=== PATIENT | male | born 1955 | race Two or more races ===

== ENCOUNTER 2017-07-26 11:42 | Day surgery (SDC) | payer OTHER ==
[2017-07-22 13:43] VITALS: BMI 31.6
[~2017-07-26 11:42] MED LIST: LACTATED RINGERS 1,000 ML IV SCH
[2017-07-26 13:17] VITALS: RESP 16; TEMP 98.9
[2017-07-26] MEDS ORDERED: LIDOCAINE 1% 20 ML VIAL (10MG/ML) FOR IV START INTRADERMA ONE (13:17)
--- NOTE | 2017-07-26 14:51 | P.PCN ---
Date of Procedure: 07/26/17 Procedure(s) Performed: Procedure: Colonoscopy and polypectomy. Preoperative diagnosis: Screening for neoplasia. Postoperative diagnosis: 1. Sigmoid polyp snared but no large polyps or cancer. 2. Sigmoid diverticulosis with no evidence of acute diverticulitis or strictures. Preparation: HalfLytely prep. Sedation: Was provided by anesthesia. Brief clinical history: The patient is a 63-year-old male who is referred for this evaluation for screening for neoplasia. He had a prior exam more than 15 years ago. At this time, he has no abdominal complaints, bleeding or anemia. Procedure: With the patient on his left lateral decubitus position and after informed consent and adequate sedation, the perianal area was inspected and it did not show any fissures or fistulas. There were no masses felt on digital rectal examination. The Olympus CFQ 160L video colonoscope was then inserted in the rectum in the usual fashion and advanced to the cecum. There were multiple diverticular orifices seen scattered in the sigmoid but there was no evidence of acute diverticulitis or strictures. There was a 1-1.5 cm polyp noted in the distal sigmoid which was snared and retrieved by suction, but there were no large polyps or cancer. The patient tolerated the procedure well. Plan: The patient was reassured. Discussed dietary measures. He will follow up with you as planned and I anticipate repeating this exam in 5 years.
[2017-07-26 15:06] VITALS: BP 156/82; PULSE 69
== END 2017-07-26 15:16 | disposition home or self-care (01) ==
LOC: ORWHC2ENDO 11:42
DX: Z12.11 Encounter for screening for malignant neoplasm of colon (principal); D12.5 Benign neoplasm of sigmoid colon; K57.30 Diverticulosis of large intestine without perforation or abscess without bleeding; F17.200 Nicotine dependence, unspecified, uncomplicated
CPT/HCPCS: 45385; 88305

== ENCOUNTER → 2023-04-22 | Outpatient (CLI) | payer MEDICARE ==
[2023-04-22 16:27] LABS: Appearance,Urine Clear (Clear); Bilirubin,Urine Negative (Negative); Blood,Urine Negative (Negative); Color,Urine Yellow (Yellow); Ketones,Urine Negative (Negative); Nitrite,Urine Negative (Negative); Specific Gravity,Urine 1.022 (1.001-1.030)
[2023-04-22 16:48] LABS: BUN/Creat Ratio 13.31 Ratio (12.00-20.00); Blood Urea Nitrogen 17.3 mg/dL (9.0-27.0); Calcium 9.7 mg/dL (8.7-10.3); Carbon Dioxide 25.5 mmol/L (21.6-31.8); Chloride 104 mmol/L (96-109); Glucose 103 mg/dL (70-110); Sodium 140 mmol/L (135-145)
[2023-04-23 04:34] LABS: Basophils # (A) 0.07 X 10*3/uL (0.00-0.10); Basophils % (A) 0.9 %; Eosinophils # (A) 0.18 X 10*3/uL (0.04-0.35); Eosinophils % (A) 2.2 %; HGB 16.8 d/dL (13.0-17.0); Lymphocytes # (A) 1.78 X 10*3/uL (0.90-5.00); MCH 31.5 pg (27.0-32.0); MCHC 32.9 d/dL (32.0-37.0); MCV 95.5 FL (80.0-97.0); Mean Platelet Volume 12.5 FL (9.5-12.2); Monocytes # (A) 0.79 X 10*3/uL (0.20-1.00); Monocytes % (A) 9.8 %; NRBC Per 100 WBC 0 X 10*3/uL (0.00-0.01); Neutrophils # (A) 5.23 X 10*3/uL (1.80-7.70); Neutrophils % (A) 64.6 %; Platelet Count 178 X 10*3/uL (140-440); RBC 5.34 X 10*6/uL (4.40-5.60); RDW 12.7 % (11.5-14.5); WBC 8.09 X 10*3/uL (4.50-10.00)
== END | disposition home or self-care (01) ==
LOC: LABWHC1 12:03
PROVIDERS: ATTEND Urology
DX: Z01.818 Encounter for other preprocedural examination (principal); C61 Malignant neoplasm of prostate; I44.4 Left anterior fascicular block; R31.29 Other microscopic hematuria; R94.31 Abnormal electrocardiogram [ECG] [EKG]
CPT/HCPCS: 36415; 80048; 81003; 85025; 87086; 93005

== ENCOUNTER 2023-04-29 05:41 | Day surgery (SDC) | payer MEDICARE ==
[2023-04-21 09:51] VITALS: BMI 31.6
[2023-04-29] MEDS ORDERED: ONDANSETRON 4 MG/2 ML VIAL ONE (06:27)
[2023-04-29] MEDS ORDERED: fentaNYL (PF) 50 MCG/ML 2 ML AMP ONE (07:36)
[2023-04-29] MEDS ORDERED: PHENYLEPHRINE-0.9% NACL SYG 1,000 MCG/10 ML SYRINGE ONE (07:36)
[2023-04-29] MEDS ORDERED: HYDROmorphone (PF) 1 MG/ML ONE (07:36)
[2023-04-29] MEDS ORDERED: KETAMINE 10 MG/ML 20 ML VIAL ONE (07:36)
[2023-04-29] MEDS ORDERED: PROPOFOL 10 MG/ML 20 ML VIAL IV ONE (07:36)
[2023-04-29] MEDS ORDERED: SUCCINYLCHOLINE CHLORIDE 200 MG/10 ML VIAL IV ONE (07:36)
[2023-04-29] MEDS ORDERED: ROCURONIUM 10 MG/ML (5 ML VIAL) IV ONE (07:36)
[2023-04-29] MEDS ORDERED: NEOSTIGMINE 1 MG/ML 10 ML VIAL ONE (07:36)
[2023-04-29] MEDS ORDERED: MIDAZOLAM 2 MG/2 ML VIAL ONE (07:36)
[2023-04-29] MEDS ORDERED: LIDOCAINE 2% INJ 20 MG/ML (2 ML VIAL) ONE (07:36)
[2023-04-29] MEDS ORDERED: GLYCOPYRROLATE 0.2 MG/ML 2 ML VIAL ONE (07:36)
[2023-04-29] MEDS ORDERED: ROPIVACAINE 5 MG/ML 30 ML VIAL ONE (07:36)
[2023-04-29] MEDS ORDERED: SODIUM CHLORIDE 0.9% (PF) 10 ML VIAL ONE (07:36)
[2023-04-29] MEDS ORDERED: LACTATED RINGERS 1,000 ML IV ONE ×2 (07:41)
--- NOTE | 2023-04-29 07:56 | P.HPIHPCON ---
History of Present Illness H&P Date: 04/29/23 Chief Complaint: prostate cancer This is a 68-year-old male with history of [place] 7 (3+4) prostate cancer. Option of a robotic radical prostatectomy versus radiation therapy was discussed with him in detail. Risk and benefit of each approach was discussed. He agreed to proceed with a robotic radical prostatectomy aware of the risk which includes but not limited to bleeding, infection, urinary incontinence, erectile dysfunction, strictures. Discussed also potential of needing additional treatment, cancer recurrence and need of surveillance post operatively was discussed. Risk of injury to nearby organs which was discussed. Discussed also risks of medical complications. He understood all the risk and agreed to proceed with robotic radical prostatectomy with possible pelvic lymph node dissection Consent for Procedure: I have explained the operation/procedure to the patient, including the risks, benefits, side effects, alternative therapies (including not receiving the proposed treatment or service), the likelihood of the patient achieving his/her goals, and potential recuperation problems for the procedure/sedation/analgesia, as well as any blood products, if indicated. I also explained to the patient the risks, benefits and side effects of the alternatives, as well as the risks related to not receiving the proposed procedure, care, treatment, or services. Past Medical History Past Medical History: Cancer, Osteoarthritis (OA) Additional Past Medical History / Comment(s): Current prostate cancer. Hx of colon polyps. "Sinus problems." Possible Raynauds. History of Any Multi-Drug Resistant Organisms: None Reported Additional Past Surgical History / Comment(s): Sinus surgery, colonoscopy with polypectomy. Past Anesthesia/Blood Transfusion Reactions: No Reported Reaction Past Psychological History: No Psychological Hx Reported Smoking Status: Current every day smoker Past Alcohol Use History: None Reported Additional Past Alcohol Use History / Comment(s): Currently down to 1/4 ppd, started smoking at age 20. Past Drug Use History: None Reported - Past Family History Mother Family Medical History: No Reported History Father Family Medical History: Cancer Medications and Allergies Home Medications Medication Instructions Recorded Confirmed Type No Known Home Medications 07/22/17 04/21/23 History Allergies Allergy/AdvReac Type Severity Reaction Status Date / Time No Known Allergies Allergy Verified 04/21/23 09:34 Surgical - Exam - General no distress, no pain - Eyes normal ocular movement, no pale - ENT normal nares, normal mucosa - Respiratory normal expansion, normal respiratory effort - Psychiatric oriented to time, oriented to person, oriented to place Assessment and Plan Assessment: All wire for robotic radical prostatectomy possible pelvic lymph node dissection
[2023-04-29] MEDS ORDERED: HYDROmorphone 1 MG/ML 1 ML SYRINGE IVP PRN (07:59)
[2023-04-29] MEDS ORDERED: ONDANSETRON 4 MG/2 ML VIAL IVP PRN (07:59)
[2023-04-29] MEDS ORDERED: BUPIVACAINE (PF) 0.25% 30 ML VIAL SQ ONE ×2 (08:30→12:10)
--- NOTE | 2023-04-29 09:47 | P.ANPRN ---
Procedure Note - Anesthesia - Nerve Block Performed Bilateral Erector Spinae Single Time Out Performed: Yes (0714) Date of Procedure: 04/29/23 Procedure Start Time: :15 Procedure Stop Time: : Location of Patient: PreOp Indication: Acute Post-Operative Pain, Requested by Surgeon Specifically requested for management of pain by : Agustín Kimball Sedation Type: Sedate with meaningful contact maintained Preparation: Sterile Prep Position: Prone Catheter: None Needle Types: Pajunk Needle Gauge: 21 (x2) Ultrasound used to visualize needle placement: Yes Ultrasound used to observe medication spread: Yes Injectate: 0.5% Ropivacaine (see comment for volume) (15cc +10cc nacl pf each side) Blood Aspirated: No Pain Paresthesia on Injection Noted: No Resistance on Injection: Normal Image Stored and Saved: Yes Events: Uneventful and Well Tolerated
--- NOTE | 2023-04-29 12:20 | P.OP ---
Date of Procedure: 04/29/23 Preoperative Diagnosis: Prostate cancer Postoperative Diagnosis: Same Procedure(s) Performed: Robotic radical prostatectomy, bilateral pelvic lymph node dissection Implants: none Anesthesia: MATTIA Surgeon: Agustín Kimball Estimated Blood Loss (ml): 150 Pathology: other (Prostate, bilateral seminal vesicle, bilateral pelvic lymph n odes) Condition: stable Disposition: PACU Indications for Procedure: This is a 68-year-old male with history of [place] 7 (3+4) prostate cancer. Option of a robotic radical prostatectomy versus radiation therapy was discussed with him in detail. Risk and benefit of each approach was discussed. He agreed to proceed with a robotic radical prostatectomy aware of the risk which includes but not limited to bleeding, infection, urinary incontinence, erectile dysfunction, strictures. Discussed also potential of needing additional treatment, cancer recurrence and need of surveillance post operatively was discussed. Risk of injury to nearby organs which was discussed. Discussed also risks of medical complications. He understood all the risk and agreed to proceed with robotic radical prostatectomy with possible pelvic lymph node dissection Operative Findings: Uncomplicated robotic radical prostatectomy Description of Procedure: After preoperative antibiotics were started, the patient was taken to the operating room. Anesthesia was induced and the patient was placed in a supine position, with adequate padding of the pressure points, shoulders, back, legs and arms. He was then prepped and draped in the standard fashion. A critical pause was performed using two patient identifiers. A 16F odonnell catheter was placed to gravity drainage. A pneumo-peritoneum was created with placement of a Veress needle to 20 mm Hg without complication, and a 8 Fr trocar was placed above the umbillicus. Under direct vision a 8mm robotic ports was placed lateral to each rectus slightly below the camera port. The left iliac fossa 8mm port was placed. The right chemistry research assistant right iliac fossa 12mm port and right paramedian 5mm portwere placed. After the patient was placed in the trendelenberg position, the robot was then docked to the 8mm robotic ports and then each robotic arm and tower was checked in relation to the patient's legs and hands to avoid inadvertent compression. The peritoneal cavity was inspected. Patient had adhesions along the left lower quadrant which was taken down sharply An inverted U-shaped incision began laterally to the left medial umbilical ligament and extended high across the midline to the right umbilical ligament. The limbs of the "U" extended to the level of the vasa on both sides. We next developed the preperitoneal space and the space of Retzius. Of note patient had evidence of right inguinal hernia Cautery was used to dissected the bladder away from the prostate. After the anterior bladder neck was incised and the bladder entered the the posterior bladder neck was exposed and the ureteral orifces identified. The posterior bladder neck was then incised and dissected away from the prostate. Patient had significant enlargement of the medial lobe with intravesical extension, prostate was dissected away from the bladder. At the end of the dissection both ureteral orifices were visualized with clear urine efflux. The vas and the seminal vesicles were now exposed and dissected to their insertions into the prostate and were not spared. The posterior layer of the Denonvillier's fascia was incised to enter salvatore the plane between prostate and perirectal fat. Each lateral pedicle was controlled with clips and cautery for hemostasis. Complete nerve preservation was performed on the left, partial nerve preservation was performed on the right. The puboprostatic ligament was incised where it inserted into the apex of the prostate and a plane between urethra and dorsal venous complex developed to expose the anterior urethral surface. The anterior wall of the urethra was transected with the cut setting a few millimeters distal to the apex of the prostate. The dorsal vein was ligated using 3-0 V lock bilateral obturator and external iliac lymph node packets were carefully dissected after careful visualization of the hypogastric artery and obturator nerve. There was careful attention paid to hemostasis with judicious use of cautery. The urethrovesical anastomosis was performed . the posterior denovillers was reapproximated using 3-0 V lock. A 9 and 9 inch 3-0 V-Lock suture was used to anastomose the urethra and bladder, starting at the 6:00 posterior position. Mucosa was secured in every stitch, to ensure a mucosa to mucosa anastomosis. The stitch was regularly cinched and the anastomosis tightened. Care was taken to not violate the ureteral orifices. The Odonnell catheter was advanced, the bladder filled, and the anastomosis was tested, as described above. Anastomsis was watertight at150 mL The periumbilical fascia was closed with 1-0-PDS suture in running fashion. All ports were closed with a subcuticular 4-0 monocryl and Dermabond. Sponge, instrument, and needle counts were correct at the end of the case x2. All specimens including prostate and lymph nodes were sent to pathology for diagnosis and will be available in a week. The patient tolerated the surgery well and without complication. He awoke without difficulty and was taken to the recovery room in stable condition
[2023-04-29] MEDS ORDERED: HYDROmorphone 0.5 MG/0.5 ML SYRINGE IVP ONE ×2 (12:46→13:18)
[2023-04-29] MEDS: KETOROLAC 15 MG/ML 1 ML VIAL IVP SCH ×4 (13:01→23:10)
[2023-04-29] MEDS ORDERED: ONDANSETRON 4 MG/2 ML VIAL IVP ONE (14:17)
[2023-04-29] MEDS ORDERED: HYDROmorphone 0.5 MG/0.5 ML SYRINGE IVP PRN (14:17)
[2023-04-29] MEDS ORDERED: DEXAMETHASONE SOD PHOSPHATE 4 MG/ML 1 ML VIAL IV ONE (14:17)
[2023-04-29] MEDS ORDERED: MIDAZOLAM 2 MG/2 ML VIAL IV PRN (14:17)
[2023-04-29] MEDS ORDERED: LACTATED RINGERS 1,000 ML IV SCH (14:17)
[2023-04-29] MEDS: HEPARIN SODIUM,PORCINE 5,000 UNIT/ML 1 ML VIAL SQ SCH ×3 (14:18→23:10)
[2023-04-29] MEDS: D5-0.45% NACL WITH KCL 20MEQ/L 1,000 ML IV SCH ×2 (17:35→23:15)
[2023-04-30] MEDS: KETOROLAC 15 MG/ML 1 ML VIAL IVP SCH (05:12)
[2023-04-30] MEDS: D5-0.45% NACL WITH KCL 20MEQ/L 1,000 ML IV SCH (06:01)
[2023-04-30 07:36] VITALS: BP 138/79; PULSE 88; RESP 17; TEMP 97.4
[2023-04-30] MEDS: HEPARIN SODIUM,PORCINE 5,000 UNIT/ML 1 ML VIAL SQ SCH (08:12)
--- NOTE | 2023-04-30 09:39 | P.DS ---
Providers Date of admission: 04/29/2023 Expected date of discharge: 04/30/23 Attending physician: Agustín Kimball MD Primary care physician: [facility] Course: On the day of admission, the patient underwent an uncomplicated robotic-assisted laparoscopic prostatectomy. The perioperative course was unremarkable. Patient remained afebrile with stable vital signs. On first postoperative day, he was able to tolerate diet without nausea or vomiting. He was ambulating and reported only mild incisional discomfort. On examination, the abdomen was soft and non-distended. Incisions were clean, dry, and intact. Darling catheter was draining urine which was faintly blood-tinged. Procedures: Robotic-assisted laparoscopic prostatectomy (RALP) with bilateral pelvic lymphadenectomy on 04/29/2023 Patient Condition at Discharge: Good Plan - Discharge Summary Discharge Rx Participant: Yes New Discharge Prescriptions: New Ciprofloxacin HCl [Cipro] 250 mg PO Q12HR #6 tablet Ketorolac [Toradol] 10 mg PO Q6HR PRN #12 tab PRN Reason: Pain Discharge Medication List Ciprofloxacin HCl [Cipro] 250 mg PO Q12HR #6 tablet 04/30/23 [Rx] Ketorolac [Toradol] 10 mg PO Q6HR PRN #12 tab 04/30/23 [Rx] Follow up Appointment(s)/Referral(s): Agustín Kimball MD [STAFF PHYSICIAN] - 1 Week Activity/Diet/Wound Care/Special Instructions: Discharge home with Darling catheter. Instruct patient to use overnight drainage bag as well as urinary leg bag. Okay to shower. Diet as tolerated. No lifting, driving, or strenuous activity. Reassure patient that abdominal wall ecchymosis and penoscrotal swelling are normal. Instruct patient to begin taking antibiotics one day prior to Darling catheter removal. Discharge Disposition: HOME SELF-CARE
== END 2023-04-30 12:14 | disposition home or self-care (01) ==
LOC: OR 05:41 → 4SSUR 13:59 → OR 04-30 12:14
PROVIDERS: ATTEND Urology
DX: C61 Malignant neoplasm of prostate (principal); M19.90 Unspecified osteoarthritis, unspecified site; F17.210 Nicotine dependence, cigarettes, uncomplicated; Z86.010 Personal history of colon polyps; Z98.890 Other specified postprocedural states; Z80.9 Family history of malignant neoplasm, unspecified
CPT/HCPCS: 64999; 86900; 86901; 88305; 86850; 88307; 88309; 55866; 38571; C1762; J2250; J0330; J1644 ×2; J2710; J0690; J3010; J1170 ×2; J2795; J1885 ×2; J2704; J2001; J2371; J0665